=== PATIENT | female | born 1960 | race Caucasian/White ===

== ENCOUNTER 2019-04-01 00:05 | Day surgery (SDC) | payer OTHER, SELFPAY ==
[2019-03-23 13:13] VITALS: BP 168/96; PULSE 96; RESP 20; TEMP 37.3; O2SAT 97; BMI 32.1
[2019-04-01] VITALS (14 sets, daily range): BP systolic 115–143; BP diastolic 56–86; PULSE 76–128; RESP 12–19; TEMP 36.4–37.3; O2SAT 90–98
--- NOTE | ~2019-04-01 | XR_ITS ---
EXAMINATION: XR knee RT 2V DATE: 04/01/2019 16:09 INDICATION: Right knee arthroplasty. Postop. TECHNIQUE: 2 views of right knee were obtained. COMPARISON: Right knee radiographs 01/19/2019 FINDINGS: There is a medial compartment arthroplasty in near-anatomic alignment. No fracture. There i s mild osteoarthritis of lateral and patellofemoral compartments characterized by marginal osteophyte s. There is gas in the knee joint and soft tissues, consistent with recent surgery. IMPRESSION: 1. Medial compartment arthroplasty in near-anatomic alignment. Reviewed, dictated and finalized at location B. DE SALES ENGINEER
[2019-04-01] MEDS: LACTATED RINGERS 1,000 ML 30 ML IV CONT ×2 (10:50→16:00)
--- NOTE | 2019-04-01 12:20 | WPDHPUPDATE1 ---
History and Physical Update Update Date/Time: 04/01/19 12:20 History and Physical has been reviewed, including an updated exam of the patient. There are NO changes in the patient's condition. Risks, benefits, and alternatives have been discussed and questions answered. Patient agrees to proceed with procedure.
--- NOTE | 2019-04-01 12:25 | P.PNAN_ITS ---
Anes - Initial Pre Proc Eval Procedure: Operation Date: 04/01/19 12:00 Proposed Procedures p Right Partial Knee Arthroplasty(Right) - Ramirez Tiwari MD Date/Time: 04/01/19 12:25 Surgeon: Ramirez Tiwari MD Pre Op Diagnosis: Right Knee Osteoarthritis Patient Data Age: 58 Gender: F Height: 1.55 m Weight: 75.8 kg Last Vital Signs Temp 37.3 C 04/01/19 10:41 Pulse 89 04/01/19 10:41 Resp 16 04/01/19 10:41 BP 140/74 04/01/19 10:41 Pulse Ox 96 04/01/19 10:41 Allergies Allergy/AdvReac Type Severity Reaction Status Date / Time Macrolide Antibiotics AdvReac Intermediate THRUSH Verified 04/01/19 11:08 amoxicillin [From Augmentin] AdvReac Mild Nausea Verified 04/01/19 11:08 clavulanic acid AdvReac Mild Nausea Verified 04/01/19 11:08 [From Augmentin] erythromycin base AdvReac Mild Nausea Verified 04/01/19 11:08 Home Medications Medication Instructions Recorded Confirmed Type aspirin 81 mg PO DAILY 03/11/19 04/01/19 History estradiol 2 mg PO DAILY 03/11/19 04/01/19 History fenofibrate 160 mg PO DAILY 03/11/19 04/01/19 History ropinirole 3 mg PO DAILY 03/11/19 04/01/19 History simvastatin 20 mg PO DAILY 03/11/19 04/01/19 History butalbital 50 mg-acetaminophen 300 1 cap PO Q4H PRN 03/24/19 04/01/19 History mg-caffeine 40 mg-codeine 30 mg cap sumatriptan succinate 25 mg tablet See Rx Instructions PO .COMPLEX 03/24/19 04/01/19 History Patient hx anesthesia problems: post op nausea/vomiting Family hx anesthesia problems: none Prior Surgeries: BILATERAL EYE SURGERY TO CORRECT STIGMATISM, RT KNEE SCOPE 2018 [facility] Past Medical History Medical History (Updated 04/01/19 @ 12:26 by Elliott De La Garza MD) Anxiety (Acute) Arthritis (Acute) HTN (hypertension) (Acute) Hypercholesterolemia (Acute) Social History Social History Smoking status: Never smoker Second hand tobacco smoke exposure: Yes Alcohol intake: never Anes - Eval Final PreProcedure Day of Procedure 04/01/19 12:25 Patient weight: obese Heart: regular rate and rhythm Lungs: clear to auscultation and normal air movement Airway: Mallampati scale class II Neurological: alert and oriented Last oral intake: >/= 8 hours ASA classification: III Emergent: no Anesthetic plan: proceed Anesthesia type and monitoring: general LMA Informed Consent: The patient's anesthetic plan and its attendant risks and benefits were discussed with the patient/family/POA. Questions were solicited and answers provided to the satisfaction of the patient/family/POA.
--- NOTE | 2019-04-01 13:27 | WPDANESPNB ---
Anes - Peripheral Nerve Block Date/Time: 04/01/19 13:27 I have discussed with the patient/family/POA the placement of a peripheral nerve block for post-operative pain management, including associated risks, benefits, complications, and side effects. Alternative methods of post-operative analgesia were detailed. Questions were solicited and answers provided to the satisfaction of the patient/family/POA. Time-Out: A pre-procedural Time-Out was completed immediately before starting the procedure and confirmed: Patient Identification, Site, Procedure, Patient Position and the Availability of Requisite Equipment. Clinical Indications: Acute post-operative pain management requested by the operative surgeon. Nerve Block Insertion Note Anes-nerve block: adductor canal right Patient position: supine Skin prep: chlorhexidine Needle: 22 gauge, stimulating, insulated echogenic needle. Needle length: 80 mm Technique: ultrasound Technique comment: in plane Injectate: bupivacaine 0.5% with epi 5 mcg/ml (30cc) Observations: tolerated well Complications: none Procedure start time:: 1315 Procedure end time:: 1320
[2019-04-01] MEDS: GENTAMICIN BONE CEMENT REFOBACIN 1 EACH TOPICAL (15:02)
[2019-04-01] MEDS: METOPROLOL TARTRATE INJ 5 MG/5 ML VIAL IV PUSH ×3 (15:53→16:10)
--- NOTE | 2019-04-01 15:55 | PM.PROC ---
Date of procedure: 04/01/19 Pre-op diagnosis: Right Knee Osteoarthritis Post-op diagnosis: same Procedure performed: Partial knee arthroplasty, medial compartment. Implants: Triathlon PKR X3 system tibial insert size #1, 9 mm thickness, femoral component size 2. Tibial base tibial base plate size 1. Anesthesia: GETA and regional (subsartorial block.) Surgeon: Ramirez Tiwari MD Estimated blood loss (mL): 50 Drains: No Complications: None Findings: Excellent bone quality. The remainder of the knee appeared intact. The anterior cruciate ligament was intact. Extensive bone loss on both the femoral and tibial side. Small stature. -1 mm resection of the distal femur. Operative details: The patient was given a general anesthetic. Preoperative antibiotics were given. The knee was prepped and draped in the usual sterile fashion. A longitudinal incision was created along the medial aspect of the patellar tendon. A minimally invasive optimized mid vastus approach was completed. No medial release was taken. The external alignment guide was used to cut the tibia with anatomic posterior slope. A 4 millimeter resection was taken. The spacer block technique was utilized to measure flexion and extension gaps after the osteophytes were removed. The difference was used to calculate the distal resection. The distal cutting block was utilized to cut the distal femur. The AP and chamfer block was utilized for this last cuts. The femur and tibia were sized. Range of motion and gap balancing was assessed. This was tested with the 1.5 millimeter spacer. The bony surfaces were cleaned with lavaged. Lug holes were drilled. The real components were cemented into position. Excess cement was carefully removed. The tourniquet was released. Meticulous hemostasis was maintained. The wound was closed with interrupted 1 Vicryl suture followed by a running 0 Quill suture and 2-0 Quill suture. Steri-Strips are placed in the skin the patient was extubated and brought to recovery room in stable condition. There were no complications.
--- NOTE | 2019-04-01 17:27 | PC.NURSE ---
This patient, Ashley Hwang, was admitted to [facility] Surg Room 303-01. Patient/family oriented to hospital policies and general routines including ID bracelet, bed and alarms, visiting hours, pain management, procedures, bathroom and other care routines, personal items, smoking policy, room service/diet, and visiting hours. Valuables list has been completed. Information on how to activate the Rapid Response Team has been discussed. Patient/Family are encouraged to report perceived risks to care and to ask questions if they do not understand what they are told or what they should do.
[2019-04-01] MEDS: SODIUM CHLORIDE 0.9% IV 1,000 ML 125 ML IV CONT (17:56)
[2019-04-01] MEDS: KETOROLAC 15 MG/ML VIAL (*BKC) IV PUSH ×2 (17:59→23:19)
[2019-04-01] MEDS: DOCUSATE SODIUM 100 MG CAPSULE PO (17:59)
[2019-04-01] MEDS: SCOPOLAMINE 1.5 MG PATCH TRANSDERM (20:53)
[2019-04-01] MEDS: FAMOTIDINE 20 MG TABLET PO (20:56)
[2019-04-02] MEDS: SODIUM CHLORIDE 0.9% IV 1,000 ML 125 ML IV CONT (02:26)
[2019-04-02] MEDS: KETOROLAC 15 MG/ML VIAL (*BKC) IV PUSH ×2 (05:19→11:05)
[2019-04-02 06:02] VITALS: BP 109/56; PULSE 78; RESP 18; TEMP 36.8; O2SAT 97
--- NOTE | 2019-04-02 07:55 | WPDANESPN ---
Anes - Prog Note Post-Op Date/Time: 04/02/19 07:55 Cardiovascular status: normal Respiratory status: normal Airway patency: baseline Mental status: baseline Post-Op hydration status: normal Vital Signs: Last Vital Signs Temp 36.8 C 04/02/19 06:02 Pulse 78 04/02/19 06:02 Resp 18 04/02/19 06:02 BP 109/56 L 04/02/19 06:02 Pulse Ox 97 04/02/19 06:02 Pain Score (VAS): 0/10. Patient resting in bed at time of assessment, appears comfortable. I/O: Intake & Output 04/01/19 04/01/19 04/02/19 15:59 23:59 07:59 Intake Total 50 150 1400 Output Total 1000 Balance 50 150 400 Post-procedural complaints: none Patient Feedback: Patient satisfied with anesthetic care.
[2019-04-02] MEDS: ESTRADIOL 1 MG TABLET 2 MG PO (08:11)
[2019-04-02] MEDS: ASPIRIN 81 MG CHEWABLE TABLET PO (08:11)
[2019-04-02] MEDS: hydroCHLOROthiazide 12.5 MG CAPSULE PO (08:11)
[2019-04-02] MEDS: FAMOTIDINE 20 MG TABLET PO (08:11)
[2019-04-02] MEDS: DOCUSATE SODIUM 100 MG CAPSULE PO (08:12)
== END 2019-04-02 12:33 | disposition home or self-care (01) ==
LOC: ANHSURGERY 15:49 → ANH3MEDSUR 17:25
PROVIDERS: PCP Family Medicine; Visit Provider Orthopaedic Surgery
PROC: (CPT 27446; principal; 2019-04-01 12:00)
DX: M17.11 Unilateral primary osteoarthritis, right knee (principal); G89.18 Other acute postprocedural pain; Z23 Encounter for immunization; I10 Essential (primary) hypertension; E78.00 Pure hypercholesterolemia, unspecified; F41.9 Anxiety disorder, unspecified; Z79.82 Long term (current) use of aspirin; E66.9 Obesity, unspecified; Z68.31 Body mass index [BMI] 31.0-31.9, adult
CPT/HCPCS: 27446; 64447; 73560; 90471; 90686; 97110; 97116; 97161; 97165; A9270; C1713; C1776; G0008; J0171; J0690; J1100; J1170; J1885; J2250; J2270; J2405; J2704; J2795; J3010; J7030; J7120

== ENCOUNTER → 2020-05-09 13:20 | Outpatient (CLI) | payer OTHER, SELFPAY ==
--- NOTE | ~2020-05-09 | MM_ITS ---
EXAMINATION: MM screening thuy BI w hayden HISTORY: Screening TECHNIQUE: Craniocaudal and mediolateral oblique 3-D tomosynthesis images were obtained and synthetic 2-D images were generated. CAD analysis was submitted and interpreted. COMPARISON: Comparison to multiple prior studies sequentially, with oldest reviewed study dated 10/21. BREAST PARENCHYMAL COMPOSITION: The breasts are heterogeneously dense, which may obscure small masses . FINDINGS: There are bilateral breast asymmetries which are slightly more prominent on current examina tion, located in the upper outer quadrants. There are no suspicious calcifications. IMPRESSION: 1. Bilateral breast asymmetries in the upper outer quadrants. 2. Additional mammographic views and possible breast ultrasound are recommended. BI-RADS Category 0: Incomplete: Needs additional imaging evaluation. Reviewed, dictated and finalized at location A. ON ELECTRODES SUPERVISOR IMPRESSION: 1. Bilateral breast asymmetries in the upper outer quadrants. 2. Additional mammographic views and possible breast ultrasound are recommended . BI-RADS Category 0: Incomplete: Needs additional imaging evaluation.
== END ==
PROVIDERS: Visit Provider Nurse Practitioner Obstetrics & Gynecology
DX: Z12.31 Encounter for screening mammogram for malignant neoplasm of breast (principal); R92.8 Other abnormal and inconclusive findings on diagnostic imaging of breast
CPT/HCPCS: 77063; 77067

== ENCOUNTER → 2020-06-01 07:57 | Outpatient (CLI) | payer OTHER, SELFPAY ==
--- NOTE | ~2020-06-01 | MMUS_ITS ---
EXAMINATION: MM diagnostic mammo BI, US breast BI limited HISTORY: Bilateral breast asymmetries reported on 05/09/2020 bilateral digital screening mammogram ex amination TECHNIQUE: Additional 3-D tomosynthesis images of both breasts were performed and synthetic 2-D image s were generated. CAD analysis was submitted and interpreted. High resolution bilateral upper outer q uadrant breast ultrasound was performed. COMPARISON: 05/01/2020 bilateral digital screening mammogram FINDINGS: MAMMOGRAPHIC FINDINGS: There is heterogeneously dense stroma which may obscure small masses. There is a circumscribed 7.6 mm low-density opacity in the outer mid right breast, likely benign. No suspicious mass or architectural distortion is noted mammographically. Due to the dense heterogeneous stroma, bilateral upper outer quadrant breast ultrasound examination w as performed. ULTRASOUND: Right breast: At 10:00 8 cm from the nipple there is a 7.4 x 5.4 x 8.6 mm simple cyst with through transmission and posterior enhancement, likely corresponding to the circumscribed opacity noted in the outer mid righ t breast mammographically. Left breast: Probable 5.8 mm cluster of cysts at 1:00 4 cm from nipple adjacent shadowing is likely f rom dense stroma. 6 month follow-up targeted left breast ultrasound is recommended. 2:00 6 cm from nipple: Parallel circumscribed 2.9 x 5.6 x 4.3 mm hypoechoic area without internal vas cularity or posterior shadowing, likely benign 3:00 5 cm from nipple: Parallel circumscribed hypoechoic 2.6 x 4.1 x 3.3 mm lesion without internal v ascularity or posterior shadowing, likely benign 3:00 7 cm from nipple: Parallel circumscribed uniform hypoechoic 9.7 x 5.3 x 8.7 mm area, likely a li hollis. IMPRESSION: 1. Probably benign findings of left breast 2. 6 month targeted left breast ultrasound follow-up is recommended. BI-RADS category 3, probably benign findings. Reviewed, dictated and finalized at location A. H SHRINKING SUPERVISOR IMPRESSION: 1. Probably benign findings of left breast 2. 6 month targeted left breast ultrasound follow-up is recommended. BI-RADS category 3, probably benign findings.
== END ==
PROVIDERS: Visit Provider Nurse Practitioner Obstetrics & Gynecology
DX: R92.8 Other abnormal and inconclusive findings on diagnostic imaging of breast (principal)
CPT/HCPCS: 76642; 77066

== ENCOUNTER 2021-01-12 14:51 | Emergency (ER) | payer OTHER, SELFPAY ==
--- NOTE | 2021-01-12 14:55 | ED.EXTPRO ---
HPI - Extremity Problem General Chief complaint: Extremity Problem,Nontraumatic Stated complaint: HEADACHE/L WRIST SWELLING Time Seen by Provider: 01/12/21 15:08 Source: patient and RN notes reviewed Mode of arrival: ambulatory Limitations: no limitations History of Present Illness HPI Narrative: 60-year-old female presents concern for left wrist pain and swelling that has been occurring for 1 month. She denies injury or trauma. Denies redness, warmth. Reports she has been taking Tylenol for pain. Reports she is unable to take NSAIDs because they upset her stomach. 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 Reports pain that radiates from the wrist down to the first digit and up to the elbow. Reports pain is exacerbated with bending of the wrist or flexion of the fingers. Reports decreased moving consultant strength. In a separate complaint she reports she wants to get tested for Covid because she found out she was at a wedding or someone had Covid. She denies any significant symptoms. MD Complaint: extremity pain Related Data Home Medications Medication Instructions Recorded Confirmed aspirin 81 mg PO DAILY 03/11/19 01/12/21 estradiol 2 mg PO DAILY 03/11/19 01/12/21 butalbital 50 mg-acetaminophen 300 1 cap PO Q4H PRN 03/24/19 01/12/21 mg-caffeine 40 mg-codeine 30 mg cap sumatriptan succinate 25 mg tablet See Rx Instructions PO .COMPLEX 03/24/19 01/12/21 cholecalciferol (vitamin D3) 10 10 mcg PO DAILY 03/28/20 01/12/21 mcg (400 unit) tablet Allergies Allergy/AdvReac Type Severity Reaction Status Date / Time Macrolide Antibiotics AdvReac Intermediate THRUSH Verified 01/12/21 14:57 amoxicillin [From Augmentin] AdvReac Mild Nausea Verified 01/12/21 14:57 clavulanic acid AdvReac Mild Nausea Verified 01/12/21 14:57 [From Augmentin] erythromycin base AdvReac Mild Nausea Verified 01/12/21 14:57 Review of Systems Review of Systems: CONSTITUTIONAL: Denies malaise, chills, sweats, or fever. SKIN: Denies rash, itching, redness, warmth, open skin MUSCULOSKELETAL: Reports left wrist pain and swelling, decreased moving consultant strength NEUROLOGIC: Denies numbness, weakness All systems reviewed & are unremarkable except as noted in HPI and below PMFSH Past Medical History Medical History Anxiety Arthritis BMI 31.0-31.9,adult HTN (hypertension) Hypercholesterolemia Tobacco abuse Family History Family History Mother Family history of arthritis Diabetes mellitus Hypertension Father Family history of lung cancer Family history of cardiovascular disease Other Cerebrovascular accident Family history of elevated blood lipids Family history of lupus erythematosus Social History Social History Smoking status: Current every day smoker Second hand tobacco smoke exposure: Yes Alcohol intake: never Substance use: never Gender identity (if verbalized by the patient): Female Spiritual care concerns: No Agree to blood products: Yes Comments At time of signature, agree with nursing past medical, surgical, social and family history. There is no relevant family history pertinent to the presenting complaint Exam Narrative: GENERAL: Well-appearing, well-nourished, and in no acute distress. HEAD: Normocephalic, atraumatic. EYES: PERRLA, conjunctivae clear NECK: Supple. CHEST: Speaks in full sentences. No respiratory distress. HEART: Regular rate and rhythm. Normal and equal peripheral pulses. EXTREMITIES: Left wrist, hand, digits have normal strength and sensation, normal range of motion. Moderate lateral wrist edema, no erythema or ecchymosis. 5/5 strength with wrist and digit flexion and extension. Normal sensation with sensitivity to light touch and pain. No point tenderness. No open wounds, no skin tenting, no devitalized t
[2021-01-12 14:57] VITALS: BP 141/80; PULSE 86; RESP 16; TEMP 36.8; O2SAT 99
== END 2021-01-12 15:25 | disposition home or self-care (01) ==
PROVIDERS: Emergency Provider Nurse Practitioner; PCP Nurse Practitioner Family
DX: M25.432 Effusion, left wrist (principal); M77.8 Other enthesopathies, not elsewhere classified; Z20.822 Contact with and (suspected) exposure to COVID-19; Z79.82 Long term (current) use of aspirin; M19.90 Unspecified osteoarthritis, unspecified site; I10 Essential (primary) hypertension; E78.00 Pure hypercholesterolemia, unspecified; F17.200 Nicotine dependence, unspecified, uncomplicated
CPT/HCPCS: 99213; G0463

== ENCOUNTER 2021-06-20 14:29 | Emergency (ER) | payer OTHER, SELFPAY ==
--- NOTE | ~2021-06-20 | XR_ITS ---
EXAMINATION: XR knee RT min 4V DATE: 06/20/2021 14:49 INDICATION: Right knee pain post fall TECHNIQUE: Anteroposterior, 2 oblique, sunrise and crosstable lateral views of the right knee were ob tained COMPARISON: 03/28/2020 FINDINGS: Again seen is a medial unicompartmental right knee arthroplasties which remains well seated in near-a natomic alignment. No fracture. No periprosthetic lucency to suggest loosening. Osteoarthritis with m oderate size marginal osteophytes in the lateral and patellofemoral compartments. Small right knee mendez int effusion without layering lipohemarthrosis at the suprapatellar pouch. There is also a small loos e body at the suprapatellar pouch. Mild soft tissue swelling at the anteromedial aspect of the knee a nd anterior to the patellar tendon. IMPRESSION: 1. Medial unicompartmental right knee arthroplasty in near-anatomic alignment. No acute osseous abnor mality. Reviewed, dictated and finalized at location A. OMER DEVELOPMENT MANAGER IMPRESSION: 1. Medial unicompartmental right knee arthroplasty in near-anatomic alignment. No acute osseous abnormality.
[2021-06-20 14:34] VITALS: BP 150/68; PULSE 98; RESP 16; TEMP 36.7; O2SAT 98
--- NOTE | 2021-06-20 15:07 | ED.LOWEXIN ---
HPI - Extremity Injury (Lower) General Chief Complaint: Extremity Injury, Lower Stated Complaint: INJURED R KNEE Source: patient Mode of arrival: ambulatory Limitations: no limitations History of Present Illness HPI Narrative: 60-year-old female presents to [facility] with complaints of pain to her right knee after slipping and falling on ice 3 hours ago. Patient reports that she was at her place of employment, when she slipped on ice and fell, landing on her right knee. Patient reports that she did have a partial right knee replacement years ago. Patient called orthopedic physician but he is out of the office for the week and they suggested that she come here for an x-ray. Patient denies hitting her head or loss of consciousness. Patient reports that she takes Tylenol arthritis daily. MD complaint: knee injury Onset (ago): hour(s) (3) Injury: Right: knee Relieving factors: nothing Exacerbating factors: movement Context: fall Other symptoms: none Related Data Home Medications Medication Instructions Recorded Confirmed aspirin 81 mg PO DAILY 03/11/19 01/12/21 estradiol 2 mg PO DAILY 03/11/19 01/12/21 butalbital 50 mg-acetaminophen 300 1 cap PO Q4H PRN 03/24/19 01/12/21 mg-caffeine 40 mg-codeine 30 mg cap sumatriptan succinate 25 mg tablet See Rx Instructions PO .COMPLEX 03/24/19 01/12/21 cholecalciferol (vitamin D3) 10 10 mcg PO DAILY 03/28/20 01/12/21 mcg (400 unit) tablet Allergies Allergy/AdvReac Type Severity Reaction Status Date / Time Macrolide Antibiotics AdvReac Intermediate THRUSH Verified 01/12/21 14:57 amoxicillin [From Augmentin] AdvReac Mild Nausea Verified 01/12/21 14:57 clavulanic acid AdvReac Mild Nausea Verified 01/12/21 14:57 [From Augmentin] erythromycin base AdvReac Mild Nausea Verified 01/12/21 14:57 Review of Systems Constitutional: Constitutional: Denies chills, Denies fever(s) and Denies weakness Cardiovascular: Cardiovascular: Denies chest pain, Denies rapid heart rate, Denies radiating jaw, neck or arm pain and Denies slow heart rate Gastrointestinal: Gastrointestinal: Denies abdominal pain, Denies diarrhea, Denies nausea and Denies vomiting Musculoskeletal: Musculoskeletal: Reports arthralgias and Reports joint swelling Comments: Right knee pain and swelling Integumentary/Breasts: Skin/Breast: Denies rash PMFSH Past Medical History Medical History Anxiety Arthritis BMI 31.0-31.9,adult HTN (hypertension) Hypercholesterolemia Tobacco abuse Family History Family History Mother Family history of arthritis Diabetes mellitus Hypertension Father Family history of lung cancer Family history of cardiovascular disease Other Cerebrovascular accident Family history of elevated blood lipids Family history of lupus erythematosus Social History Social History Smoking status: Current every day smoker Second hand tobacco smoke exposure: Yes Alcohol intake: never Substance use: never Gender identity (if verbalized by the patient): Female Spiritual care concerns: No Agree to blood products: Yes Comments At time of signature, I agree with nursing past medical, surgical, social and family history. There is no relevant family history pertinent to the presenting complaint. Exam Const: General: no acute distress Nutritional Appearance: well nourished Orientation/consciousness: patient oriented x3 Neck: Neck: normal visual inspection Resp: Effort & Inspection: normal respiratory effort Auscultation: clear to auscultation bilaterally Cardio: Rate: regular rate, not bradycardic and not tachycardic Rhythm: regular rhythm Skin: General skin exam: normal color Rashes: no rashes Wounds: no wounds Neuro: General: patient oriented x3, moves all extremities and no meningeal signs Extrem: Oth
== END 2021-06-20 15:23 | disposition home or self-care (01) ==
PROVIDERS: Emergency Provider Nurse Practitioner Family; PCP Family Medicine
DX: M25.561 Pain in right knee (principal); F17.200 Nicotine dependence, unspecified, uncomplicated; M19.90 Unspecified osteoarthritis, unspecified site; I10 Essential (primary) hypertension; E78.00 Pure hypercholesterolemia, unspecified; Z79.82 Long term (current) use of aspirin
CPT/HCPCS: 73564; 99213; G0463

== ENCOUNTER 2021-08-28 02:30 | Emergency (ER) | payer OTHER, SELFPAY ==
[2021-08-28 02:34] VITALS: BP 145/77; PULSE 82; RESP 18; TEMP 35.8; O2SAT 100
[2021-08-28 02:40] VITALS: BP 115/90; PULSE 73; RESP 16; TEMP 36.4; O2SAT 93
--- NOTE | 2021-08-28 03:31 | ED.GENADULT ---
HPI - General Adult General Chief complaint: Headache Stated complaint: cluster headache Time Seen by Provider: 08/28/21 02:52 Source: patient History of Present Illness HPI narrative: 61-year-old female presented to the emergency department for evaluation of what she suspects is a cluster headache. Patient has been having intermittent symptoms of the last few days. This happens on a yearly basis for her. Patient describes a sharp occipital pains that are intermittent but occur rapidly over a period of time, typically a few hours and then they resolve. Patient had some episodes on , was okay Saturday, but did have recurrent episodes on Saturday and then again . Patient had previously been treated with dexamethasone and Fioricet and had good results. Patient describes an adverse reaction to Compazine previously. Patient has had neurology follow-up for these many years ago and had a negative head CT. Patient does have seasonal allergies associated with the spring and states that the headaches occur typically this time of the year. Related Data Home Medications Medication Instructions Recorded Confirmed aspirin 81 mg PO DAILY 03/11/19 06/26/21 cholecalciferol (vitamin D3) 10 10 mcg PO DAILY 03/28/20 06/26/21 mcg (400 unit) tablet adalimumab [Humira(CF) Pen] mg SUBCUT 08/28/21 08/28/21 estradiol mg 08/28/21 fenofibrate mg 08/28/21 folic acid 08/28/21 hydrochlorothiazide 08/28/21 methotrexate sodium (PF) 08/28/21 paroxetine HCl mg PO 08/28/21 ropinirole mg 08/28/21 simvastatin mg 08/28/21 Allergies Allergy/AdvReac Type Severity Reaction Status Date / Time Macrolide Antibiotics AdvReac Intermediate THRUSH Verified 08/28/21 02:56 amoxicillin [From Augmentin] AdvReac Mild Nausea Verified 08/28/21 02:56 clavulanic acid AdvReac Mild Nausea Verified 08/28/21 02:56 [From Augmentin] erythromycin base AdvReac Mild Nausea Verified 08/28/21 02:56 Review of Systems Review of Systems: CONSTITUTIONAL: Denies fever, chills, or sweats. EYES: Denies visual changes, redness, or discharge. ENT: Denies rhinorrhea, congestion, sore throat, or otalgia. CARDIOVASCULAR: Denies chest pain, palpitations, or edema. RESPIRATORY: Denies cough or dyspnea. GASTROINTESTINAL: Denies abdominal pain, nausea, vomiting, or diarrhea. GENITOURINARY: Denies dysuria or hematuria. SKIN: Denies rash or itching. MUSCULOSKELETAL: Denies back pain, joint pain, or myalgia. NEUROLOGIC: see HPI All systems reviewed & are unremarkable except as noted in HPI and below PMFSH Past Medical History Medical History Anxiety Arthritis BMI 31.0-31.9,adult HTN (hypertension) Hypercholesterolemia Tobacco abuse Family History Family History Mother Family history of arthritis Diabetes mellitus Hypertension Father Family history of lung cancer Family history of cardiovascular disease Other Cerebrovascular accident Family history of elevated blood lipids Family history of lupus erythematosus Social History Social History Second hand tobacco smoke exposure: Yes Alcohol intake: never Substance use: never Gender identity (if verbalized by the patient): Female Spiritual care concerns: No Agree to blood products: Yes Exam Narrative: APPEARANCE: Well appearing, no pain, no distress, well-nourished. HEAD: normocephalic, atraumatic. EYES: PERRLA/EOMI, conjunctivae clear. NOSE: Normal no drainage NECK: Supple. No adenopathy, no masses. RESPIRATORY: Airway patent, respirations nonlabored. Clear to auscultation bilaterally, no rales, rhonchi, wheezing. CARDIOVASCULAR: Regular rate and rhythm without murmurs rubs or gallops. ABDOMINAL: Soft, nontender, nondistended, normal bowel sounds MUSCULOSKELETAL: Moves all extremities. Strength/ROM intact, No edema, No marika
[2021-08-28] MEDS: SODIUM CHLORIDE 0.9% IV 1,000 ML 999 ML IV CONT (04:00)
[2021-08-28] MEDS: KETOROLAC 15 MG/ML VIAL (*BKC) IV PUSH (04:03)
[2021-08-28 04:06] VITALS: BP 147/80; O2SAT 98
[2021-08-28] MEDS: ACETAMINOPHEN/BUTALBITAL/CAFFEINE 325-50-40 MG TABLET (FIORICET) 1 TAB PO (04:09)
[2021-08-28 04:31] VITALS: BP 133/82; O2SAT 98
[2021-08-28 05:00] VITALS: BP 137/76; PULSE 65; RESP 16; O2SAT 98
== END 2021-08-28 05:00 | disposition home or self-care (01) ==
PROVIDERS: Emergency Provider Emergency Medicine; PCP Family Medicine
DX: R51.9 Headache, unspecified (principal); M54.81 Occipital neuralgia; I10 Essential (primary) hypertension; E78.00 Pure hypercholesterolemia, unspecified; Z77.22 Contact with and (suspected) exposure to environmental tobacco smoke (acute) (chronic); Z79.82 Long term (current) use of aspirin
CPT/HCPCS: 96361; 96374; 96375; 99284; A9270; J1100; J1885; J7030

== ENCOUNTER 2022-04-16 01:04 | Day surgery (SDC) | payer OTHER, SELFPAY ==
[2022-02-27 09:26] VITALS: BMI 30.2
--- NOTE | 2022-03-04 09:38 | SUR.PREOP ---
938 CALLED PATIENT TO INFORM HER OF THE DOCTOR'S UNAVAILABILITY AND PROCEDURE CANCELLED. INFORMED PATIENT THE DOCTOR'S OFFICE WILL CALL TO RESCHEDULE PATIENT VOICED UNDERSTANDING.
[2022-04-16 09:07] VITALS: BP 137/75; PULSE 74; RESP 18; TEMP 36.6; O2SAT 98
--- NOTE | 2022-04-16 09:07 | WPDANESEPPF ---
Anes - Initial Pre Proc Eval Procedure: Operation Date: 04/16/22 10:00 Proposed Procedures p Esophagogastroduodenoscopy & Screening Colonoscopy - Antoni Randle MD Date/Time: 04/16/22 09:07 Surgeon: Antoni Randle MD Pre Op Diagnosis: neoplasm screening, dysphagia Patient Data Age: 61 Gender: F Height: 1.55 m Weight: 72.5 kg Allergies Allergy/AdvReac Type Severity Reaction Status Date / Time Macrolide Antibiotics AdvReac Intermediate THRUSH Verified 04/16/22 09:04 amoxicillin [From Augmentin] AdvReac Mild Nausea Verified 04/16/22 09:04 clavulanic acid AdvReac Mild Nausea Verified 04/16/22 09:04 [From Augmentin] erythromycin base AdvReac Mild Nausea Verified 04/16/22 09:04 Home Medications Medication Instructions Recorded Confirmed Type aspirin 81 mg chewable tablet 81 mg PO DAILY 03/11/19 04/02/22 History adalimumab 40 mg/0.4 mL 40 mg subcut WEEKLY 08/28/21 04/02/22 History subcutaneous pen kit (Humira(CF) Pen) estradiol 2 mg tablet 2 mg PO DAILY 08/28/21 04/02/22 History folic acid 1 mg tablet 1 mg PO DAILY 08/28/21 04/02/22 History methotrexate sodium (PF) 25 mg/mL 12.5 mg subcut WEEKLY 11/21/21 04/02/22 History injection solution fenofibrate 160 mg tablet 160 mg PO DAILY #30 tabs 02/22/22 04/02/22 Rx simvastatin 20 mg tablet 20 mg PO DAILY #30 tabs 02/22/22 04/02/22 Rx acetaminophen 650 mg 650 mg PO Q8H 02/27/22 04/02/22 History tablet,extended release (Tylenol Arthritis Pain) [id number] 1 cap PO Q8H PRN Headache 02/27/22 04/02/22 History 50 mg-300 mg-40 mg capsule cholecalciferol (vitamin D3) 50 50 mcg PO DAILY 02/27/22 04/02/22 History mcg (2,000 unit) capsule (Vitamin D3) hydrochlorothiazide 12.5 mg tablet 12.5 mg PO DAILY 02/27/22 04/02/22 History ropinirole 3 mg tablet 3 mg PO QHS #30 tabs 03/18/22 04/16/22 Rx paroxetine HCl 10 mg tablet 10 mg PO DAILY #90 tabs 04/11/22 04/16/22 Rx Patient hx anesthesia problems: none Family hx anesthesia problems: none Results Review: All pre-operative results and documents have been reviewed as part of the pre-operative evaluation. [facility] Past Medical History Medical History Anxiety Arthritis BMI 31.0-31.9,adult HTN (hypertension) Hypercholesterolemia Tobacco abuse Surgical History Surgical History (Updated 04/16/22 @ 09:07 by Mukesh Lui MD) History of total knee arthroplasty Family History Family History Mother Family history of arthritis Diabetes mellitus Hypertension Father Family history of lung cancer Family history of cardiovascular disease Other Cerebrovascular accident Family history of elevated blood lipids Family history of lupus erythematosus Social History Social History Smoking packs per day: 1 Smoking cigarettes per day: 20.0 Years smoked: 43 Smoking pack-years: 43.00 Smoking status: Current every day smoker Tobacco type: cigarettes Second hand tobacco smoke exposure: Yes Alcohol intake: former Substance use: current Substance use type: marijuana Other substance usage details: OCC. Living arrangements: with family Gender identity (if verbalized by the patient): Female Spiritual care concerns: No Agree to blood products: Yes Anes - Eval Final PreProcedure Day of Procedure 04/16/22 09:07 Patient weight: obese Heart: regular rate and rhythm Lungs: clear to auscultation Airway: Mallampati scale class II Neurological: alert and oriented Last oral intake: >/= 8 hours ASA classification: III Emergent: no Anesthetic plan: proceed Anesthesia type and monitoring: general GIVS and standard monitoring Results Review: All pre-operative results and documents have been reviewed as part of the pre-operative evaluation. Informed Consent
[2022-04-16] MEDS: LACTATED RINGERS 1,000 ML 150 ML IV CONT (09:16)
--- NOTE | 2022-04-16 09:38 | PM.HPGS ---
History of Present Illness History of Present Illness Consent: Risks, benefits, and alternatives have been discussed and questions answered. Patient agrees to proceed with procedure. Chief complaint: neoplasm screening, dysphagia Narrative: Ashley Hwang is a 61 year old female with intermittent dysphagia to solids but not taking anything, also needs screening colonoscopy (had one in her 40's because IBS) Review of Systems Constitutional: Constitutional: Denies headache(s) and Denies weakness Eyes: Eyes: Denies blurry vision ENT: Reports Normal hearing present, Denies headache(s) and Denies neck pain Cardiovascular: Cardiovascular: Denies chest pain and Denies dyspnea Respiratory: Respiratory: Denies dyspnea Gastrointestinal: Gastrointestinal: Reports no additional gastrointestinal complaints Genitourinary: Genitourinary: Denies dysuria Musculoskeletal: Musculoskeletal: Denies neck pain Integumentary/Breasts: Skin/Breast: Denies dry skin Neurologic: Reports Normal hearing present, Denies headache(s) and Denies weakness Psychiatric: Psychiatric: Denies anxiety Endocrine: Endocrine: Denies change in body appearance Hematologic/Lymphatic: Hematologic/Lymphatic: Denies easy bleeding Allergic/Immunologic: Allergic/Immunologic: Denies urticaria PMFSH Past Medical History Medical History Anxiety Arthritis BMI 31.0-31.9,adult HTN (hypertension) Hypercholesterolemia Tobacco abuse Surgical History Surgical History (Updated 04/16/22 @ 09:07 by Mukesh Lui MD) History of total knee arthroplasty Family History Family History Mother Family history of arthritis Diabetes mellitus Hypertension Father Family history of lung cancer Family history of cardiovascular disease Other Cerebrovascular accident Family history of elevated blood lipids Family history of lupus erythematosus Social History Social History Smoking packs per day: 1 Smoking cigarettes per day: 20.0 Years smoked: 43 Smoking pack-years: 43.00 Smoking status: Current every day smoker Tobacco type: cigarettes Second hand tobacco smoke exposure: Yes Alcohol intake: former Substance use: current Substance use type: marijuana Other substance usage details: OCC. Living arrangements: with family Gender identity (if verbalized by the patient): Female Spiritual care concerns: No Agree to blood products: Yes Meds Home Medications and Allergies Home Medications Medication Instructions Recorded Confirmed Type aspirin 81 mg chewable tablet 81 mg PO DAILY 03/11/19 04/02/22 History adalimumab 40 mg/0.4 mL 40 mg subcut WEEKLY 08/28/21 04/02/22 History subcutaneous pen kit (Humira(CF) Pen) estradiol 2 mg tablet 2 mg PO DAILY 08/28/21 04/02/22 History folic acid 1 mg tablet 1 mg PO DAILY 08/28/21 04/02/22 History methotrexate sodium (PF) 25 mg/mL 12.5 mg subcut WEEKLY 11/21/21 04/02/22 History injection solution fenofibrate 160 mg tablet 160 mg PO DAILY #30 tabs 02/22/22 04/02/22 Rx simvastatin 20 mg tablet 20 mg PO DAILY #30 tabs 02/22/22 04/02/22 Rx acetaminophen 650 mg 650 mg PO Q8H 02/27/22 04/02/22 History tablet,extended release (Tylenol Arthritis Pain) [id number] 1 cap PO Q8H PRN Headache 02/27/22 04/02/22 History 50 mg-300 mg-40 mg capsule cholecalciferol (vitamin D3) 50 50 mcg PO DAILY 02/27/22 04/02/22 History mcg (2,000 unit) capsule (Vitamin D3) hydrochlorothiazide 12.5 mg tablet 12.5 mg PO DAILY 02/27/22 04/02/22 History ropinirole 3 mg tablet 3 mg PO QHS #30 tabs 03/18/22 04/16/22 Rx paroxetine HCl 10 mg tablet 10 mg PO DAILY #90 tabs 04/11/22 04/16/22 Rx Allergies Allergy/AdvReac Type Severity Reaction Status Date / Time Macrolide Antibiotics AdvReac Intermediate THRU
--- NOTE | 2022-04-16 10:09 | SUR.OPER ---
EGD START: 947; END: 954. COLONOSCOPY START: 958; END: 1006.
[2022-04-16 10:14] VITALS: BP 104/71; PULSE 77; RESP 23; O2SAT 99
[2022-04-16 10:24] VITALS: BP 138/70; PULSE 65; RESP 14; O2SAT 100
[2022-04-16 10:34] VITALS: BP 135/65; PULSE 67; RESP 15; O2SAT 100
== END 2022-04-16 10:42 | disposition home or self-care (01) ==
PROVIDERS: PCP Nurse Practitioner Family; Visit Provider Internal Medicine Gastroenterology
PROC: 0DJ08ZZ Inspection of Upper Intestinal Tract, Via Natural or Artificial Opening Endoscopic (ICD-10-PCS; CPT 43235; principal; 2022-04-16 10:00)
DX: Z12.11 Encounter for screening for malignant neoplasm of colon (principal); K57.30 Diverticulosis of large intestine without perforation or abscess without bleeding; K64.8 Other hemorrhoids; K22.2 Esophageal obstruction; K29.70 Gastritis, unspecified, without bleeding; I10 Essential (primary) hypertension; F41.9 Anxiety disorder, unspecified; E78.00 Pure hypercholesterolemia, unspecified; M19.90 Unspecified osteoarthritis, unspecified site; F17.210 Nicotine dependence, cigarettes, uncomplicated; F12.90 Cannabis use, unspecified, uncomplicated; E66.9 Obesity, unspecified; Z68.29 Body mass index [BMI] 29.0-29.9, adult; Z79.82 Long term (current) use of aspirin; Z79.620 Long term (current) use of immunosuppressive biologic
CPT/HCPCS: 45378; 43239; 43249; 87081; 88305; C1726; J2704; J7120

== ENCOUNTER 2022-07-10 11:54 | Emergency (ER) | payer OTHER, SELFPAY ==
[2022-07-10 12:03] VITALS: BP 149/79; PULSE 90; RESP 16; TEMP 36.7; O2SAT 99
[2022-07-10] MEDS: KETOROLAC 15 MG/ML VIAL (*BKC) IV PUSH (14:48)
--- NOTE | 2022-07-10 14:48 | ED.HA ---
HPI - Headache General Chief Complaint: Headache Stated Complaint: headache x 1 week with sinus pressure Time Seen by Provider: 07/10/22 13:55 History of Present Illness HPI Narrative: Patient is a 61-year-old female with a history of hypertension, hyperlipidemia, anxiety presenting with a headache. Patient states that every year around this time she develops a persistent headache. States that she has had to come to the ER for these in the past. States that this time it started out as sharp stabbing and has now evolved into a generalized pressure headache. States that she feels sensitive to light. No numbness or weakness, vision changes, speech changes, ataxia, neck stiffness, fevers. States that Imitrex and steroids have helped in the past. States that oxygen has also helped in the past. No chest pain, shortness of breath, cough, abdominal pain, nausea or vomiting, diarrhea, dysuria, leg swelling. Patient does complain of increased urinary frequency. Related Data Home Medications Medication Instructions Recorded Confirmed aspirin 81 mg chewable tablet 81 mg PO DAILY 03/11/19 04/02/22 adalimumab 40 mg/0.4 mL 40 mg subcut WEEKLY 08/28/21 04/02/22 subcutaneous pen kit (Humira(CF) Pen) estradiol 2 mg tablet 2 mg PO DAILY 08/28/21 04/02/22 folic acid 1 mg tablet 1 mg PO DAILY 08/28/21 04/02/22 methotrexate sodium (PF) 25 mg/mL 12.5 mg subcut WEEKLY 11/21/21 04/02/22 injection solution acetaminophen 650 mg 650 mg PO Q8H 02/27/22 04/02/22 tablet,extended release (Tylenol Arthritis Pain) cholecalciferol (vitamin D3) 50 50 mcg PO DAILY 02/27/22 04/02/22 mcg (2,000 unit) capsule (Vitamin D3) Allergies Allergy/AdvReac Type Severity Reaction Status Date / Time Macrolide Antibiotics AdvReac Intermediate THRUSH Verified 07/12/22 11:57 clavulanic acid AdvReac Mild Nausea Verified 07/12/22 11:57 [From Augmentin] erythromycin base AdvReac Mild Nausea Verified 07/12/22 11:57 Review of Systems Review of Systems: All systems reviewed & are unremarkable except as noted in HPI and below PMFSH Past Medical History Medical History Anxiety Arthritis BMI 31.0-31.9,adult HTN (hypertension) Hypercholesterolemia Tobacco abuse Surgical History Surgical History History of total knee arthroplasty Family History Family History Mother Family history of arthritis Diabetes mellitus Hypertension Father Family history of lung cancer Family history of cardiovascular disease Other Cerebrovascular accident Family history of elevated blood lipids Family history of lupus erythematosus Social History Social History Smoking packs per day: 1 Smoking cigarettes per day: 20.0 Years smoked: 43 Smoking pack-years: 43.00 Smoking status: Current every day smoker Tobacco type: cigarettes Second hand tobacco smoke exposure: Yes Alcohol intake: former Substance use: current Substance use type: marijuana Other substance usage details: OCC. Living arrangements: with family Gender identity (if verbalized by the patient): Female Spiritual care concerns: No Agree to blood products: Yes Exam Narrative: GENERAL: Well-appearing, well-nourished, and in no acute distress. HEAD: Normocephalic, atraumatic. EYES: PERRLA and EOMI. ENT: Nares clear, no rhinorrhea or epistaxis. Mucous membranes moist. NECK: Supple. CHEST: Clear to auscultation. No respiratory distress. HEART: Regular rate and rhythm. No murmur heard. Normal peripheral pulses. ABDOMEN: Soft, nontender, nondistended EXTREMITIES: Normal range of motion. No edema. SKIN: Warm, dry, no rash. NEURO: No focal deficits. Alert and oriented x3. PSYCH: Normal mood and affect. Course Vital Si
[2022-07-10] MEDS: SODIUM CHLORIDE 0.9% IV 1,000 ML 999 ML IV CONT (14:53)
[2022-07-10] MEDS: SUMAtriptan SUCCINATE 25 MG TABLET PO (14:53)
[2022-07-10 15:20] LABS: Basophils Absolute Auto 0.1 K/mm3 (0.0-0.1); Basophils Percent Auto 0.5 % (0.2-1.2); Eosinophils Absolute Auto 0.1 K/mm3 (0-0.3); Hematocrit 42.2 % (37.0-47.0); Hemoglobin 13.6 g/dL (12.0-15.0); Immature Granulocyte Absolute 0.04 K/mm3 (0.00-0.031); Immature Granulocyte Percent A 0.4 % (0-0.5); Lymphocytes Absolute Auto 3.01 K/mm3 (0.9-3.2); Lymphocytes Percent Auto 30.8 % (18.3-44.2); Mean Corpuscular HGB Conc 32.2 g/dl (32-36); Mean Corpuscular Hemoglobin 31.2 pg (26-34); Mean Corpuscular Volume 96.8 fl (80-100); Monocytes Absolute Auto 0.7 K/mm3 (0.1-0.6); Monocytes Percent Auto 7.2 % (2.6-8.5); Neutrophils Absolute Auto 5.9 K/mm3 (1.3-6.7); Neutrophils Percent Auto 60.1 % (45.5-73.1); Platelet Count Result 359 k/mm3 (150-375); Red Blood Count 4.36 M/mm3 (4.2-5.4); Red Cell Distribution Width 13.2 % (11.5-14.5); White Blood Count 9.8 K/mm3 (4.5-10.0)
[2022-07-10 15:24] LABS: Appearance Urine Clear (Clear); Bilirubin Urine Negative (Negative); Blood Urine Trace-intact (Negative); Color Urine Yellow (Yellow); Glucose Urine UA Negative (Negative); Ketones Urine Negative (Negative); Leukocyte Esterase Ur Negative LEU/UL (Negative); Nitrate Urine Negative (Negative); Protein Urine Negative (Negative); Specific Grav Ur 1.015 (1.001-1.035); Urobilinogen Urine 0.2 mg/dL (<2.0)
[2022-07-10 15:29] LABS: Bacteria Urine Trace /hpf; Squamous Epithelial Cell Urine Rare /hpf (Few)
[2022-07-10 15:37] LABS: Alanine Aminotransferase 42 U/L (6-35); Albumin Level 4.4 g/dL (3.5-5.1); Alkaline Phosphatase 72 U/L (38-126); Anion Gap 7 mmol/L (8-16); Aspartate Amino Transferase 31 U/L (14-36); Bilirubin,Total 0.4 mg/dL (0.2-1.3); Blood Urea Nitrogen 13 mg/dL (7-17); Calcium 9.4 mg/dL (8.4-10.2); Carbon Dioxide 29 mmol/L (22-30); Chloride 103 mmol/L (98-107); Estimated CRCL calculation 110 ml/min; Estimated Glomerular Filt Rate > 60; Glucose 96 mg/dL (65-110); Potassium 3.8 mmol/L (3.4-5.0); Sodium 139 mmol/L (137-145)
[2022-07-10 15:40] LABS: Add Urine Microscopic? YES
[2022-07-10 16:38] VITALS: BP 131/82; PULSE 74; RESP 16; O2SAT 99
== END 2022-07-10 16:38 | disposition home or self-care (01) ==
PROVIDERS: Emergency Provider Emergency Medicine; PCP Family Medicine
DX: N39.0 Urinary tract infection, site not specified (principal); R51.9 Headache, unspecified; F17.210 Nicotine dependence, cigarettes, uncomplicated; F41.9 Anxiety disorder, unspecified; M19.90 Unspecified osteoarthritis, unspecified site; I10 Essential (primary) hypertension; E78.5 Hyperlipidemia, unspecified
CPT/HCPCS: 36415; 80053; 81001; 85025; 96361; 96374; 96375; 99284; A9270; J1100; J1885; J7030

== ENCOUNTER 2022-07-12 10:46 | Emergency (ER) | payer OTHER, SELFPAY ==
--- NOTE | ~2022-07-12 | CT_ITS ---
EXAMINATION: CT brain wo con DATE: 07/12/2022 11:31 INDICATION: Headache. TECHNIQUE: Computed tomography (CT) of the head was performed without intravenous contrast. The mA wa s adjusted according to patient size. Iterative reconstruction technique was employed. The dose-lengt h product was 605.33 mGy-cm. COMPARISON: Head CT 08/10/2018 FINDINGS: There is no intracranial hemorrhage, acute infarction, or abnormal intracranial mass lesion . The ventricles are normal in size. There is mild mucosal thickening in the paranasal sinuses. The m astoid air cells are normal. The orbits are normal. IMPRESSION: 1. Normal brain. Reviewed, dictated and finalized at location A. T OF [employer] MANAGER IMPRESSION: 1. Normal brain.
[2022-07-12 11:00] VITALS: BP 148/70; PULSE 87; RESP 16; TEMP 37; O2SAT 96
--- NOTE | 2022-07-12 12:37 | ED.GENADULT ---
HPI - General Adult General Chief complaint: Headache Stated complaint: headaches Time Seen by Provider: 07/12/22 11:14 Source: patient and old records reviewed Mode of arrival: ambulatory Limitations: no limitations History of Present Illness HPI narrative: Patient is a 61-year-old female who presents to the ED with reports of a diffuse headache. Patient reports having pain for the last 1.5 weeks. She states pain starts from her occipital region/neck and spreads diffusely throughout her head to her methodist regions. Patient reports having occasional headaches around this time of the year. She has been seen in the ED several times for this previously, thought to be related to cluster headaches versus occipital neuralgia versus migraine. Patient was seen here on Saturday and had improvement with Imitrex, steroids, fluids, Toradol. Patient states her pain improved for approximately 2 hours before returning again that night. She is unable to find any other relief. She took Fioricet around 5 AM this morning and ibuprofen 800 mg at 10 AM. Patient also reports having photophobia and phonophobia, denies fever, vision changes, nausea, vomiting, weakness, dizziness, lightheadedness, numbness, confusion, head injury. Related Data Home Medications Medication Instructions Recorded Confirmed aspirin 81 mg chewable tablet 81 mg PO DAILY 03/11/19 04/02/22 adalimumab 40 mg/0.4 mL 40 mg subcut WEEKLY 08/28/21 04/02/22 subcutaneous pen kit (Humira(CF) Pen) estradiol 2 mg tablet 2 mg PO DAILY 08/28/21 04/02/22 folic acid 1 mg tablet 1 mg PO DAILY 08/28/21 04/02/22 methotrexate sodium (PF) 25 mg/mL 12.5 mg subcut WEEKLY 11/21/21 04/02/22 injection solution acetaminophen 650 mg 650 mg PO Q8H 02/27/22 04/02/22 tablet,extended release (Tylenol Arthritis Pain) cholecalciferol (vitamin D3) 50 50 mcg PO DAILY 02/27/22 04/02/22 mcg (2,000 unit) capsule (Vitamin D3) Allergies Allergy/AdvReac Type Severity Reaction Status Date / Time Macrolide Antibiotics AdvReac Intermediate THRUSH Verified 07/12/22 11:57 clavulanic acid AdvReac Mild Nausea Verified 07/12/22 11:57 [From Augmentin] erythromycin base AdvReac Mild Nausea Verified 07/12/22 11:57 Review of Systems Review of Systems: CONSTITUTIONAL: Denies fever, chills, or sweats. EYES: See HPI. ENT: See HPI. CARDIOVASCULAR: Denies chest pain, palpitations, or edema. RESPIRATORY: Denies cough or dyspnea. GASTROINTESTINAL: Denies abdominal pain, nausea, vomiting. MUSCULOSKELETAL: See HPI. NEUROLOGIC: See HPI. All systems reviewed & are unremarkable except as noted in HPI and below PMFSH Past Medical History Medical History Anxiety Arthritis BMI 31.0-31.9,adult HTN (hypertension) Hypercholesterolemia Tobacco abuse Surgical History Surgical History History of total knee arthroplasty Family History Family History Mother Family history of arthritis Diabetes mellitus Hypertension Father Family history of lung cancer Family history of cardiovascular disease Other Cerebrovascular accident Family history of elevated blood lipids Family history of lupus erythematosus Social History Social History Smoking packs per day: 1 Smoking cigarettes per day: 20.0 Years smoked: 43 Smoking pack-years: 43.00 Smoking status: Current every day smoker Tobacco type: cigarettes Second hand tobacco smoke exposure: Yes Alcohol intake: former Substance use: current Substance use type: marijuana Other substance usage details: OCC. Living arrangements: with family Gender identity (if verbalized by the patient): Female Spiritual care concerns: No Agree to blood products: Yes Exam Narrative: GENERAL: Well a
[2022-07-12] MEDS: SODIUM CHLORIDE 0.9% IV 1,000 ML 999 ML IV CONT (13:04)
[2022-07-12] MEDS: SUMAtriptan SUCCINATE 25 MG TABLET 50 MG PO (13:05)
[2022-07-12] MEDS: METOCLOPRAMIDE HCL INJ 10 MG/2 ML VIAL IV PUSH (13:05)
[2022-07-12] MEDS: diphenhydrAMINE HCl INJ 50 MG/ML VIAL 25 MG IV PUSH (13:05)
== END 2022-07-12 14:34 | disposition home or self-care (01) ==
PROVIDERS: Emergency Provider Physician Assistant; PCP Family Medicine
DX: R51.9 Headache, unspecified (principal); I10 Essential (primary) hypertension; E78.00 Pure hypercholesterolemia, unspecified; F41.9 Anxiety disorder, unspecified; F17.210 Nicotine dependence, cigarettes, uncomplicated; F12.90 Cannabis use, unspecified, uncomplicated; Z79.82 Long term (current) use of aspirin; Z79.620 Long term (current) use of immunosuppressive biologic
CPT/HCPCS: 70450; 96365; 96375; 99284; A9270; J0131; J1100; J1200; J2765; J7030

== ENCOUNTER → 2023-01-21 13:32 | Outpatient (CLI) | payer OTHER, SELFPAY ==
--- NOTE | ~2023-01-21 | XR_ITS ---
EXAMINATION: XR chest 2V 01/21/2023 13:56 INDICATION: Smoker. PROCEDURE: 2 view chest COMPARISON: 02/24/2019 FINDINGS: The lungs are clear. The cardiomediastinal silhouette is within normal limits. There are no pleural effusions. There is no pneumothorax suspected. IMPRESSION: 1: NO ACUTE CARDIOPULMONARY DISEASE. Reviewed, dictated and finalized at location B.
== END ==
PROVIDERS: PCP Nurse Practitioner Family; Visit Provider Nurse Practitioner Family
DX: Z72.0 Tobacco use (principal)
CPT/HCPCS: 71046

== ENCOUNTER 2024-01-12 02:13 | Emergency (ER) | payer OTHER, SELFPAY ==
[2024-01-12 02:18] VITALS: BP 134/77; PULSE 88; RESP 18; TEMP 36.8; O2SAT 97
--- NOTE | 2024-01-12 06:31 | ED.GENADULT ---
HPI - General Adult General Chief complaint: Headache Stated complaint: headache Time Seen by Provider: 01/12/24 06:22 History of Present Illness HPI narrative: This is a 63-year-old female presenting with a headache. Patient says the headache started her neck and now is like an ice pick stabbing her in her head. This is her typical headache. She has these once a year and comes to the ED for IV medication. Patient has seen a several neurologist for this in the past with not gabapentin which usually provides relief but did not this time. Related Data Home Medications Medication Instructions Recorded Confirmed aspirin 81 mg chewable tablet 81 mg PO DAILY 03/11/19 12/02/23 cholecalciferol (vitamin D3) 50 50 mcg PO DAILY 02/27/22 12/02/23 mcg (2,000 unit) capsule (Vitamin D3) etanercept 50 mg/mL (1 mL) 50 mg subcut WEEKLY 06/03/23 12/02/23 subcutaneous syringe (Enbrel) Allergies Allergy/AdvReac Type Severity Reaction Status Date / Time Macrolide Antibiotics AdvReac Intermediate THRUSH Verified 12/02/23 10:27 clavulanic acid AdvReac Mild Nausea Verified 12/02/23 10:27 [From Augmentin] erythromycin base AdvReac Mild Nausea Verified 12/02/23 10:27 PMFSH Past Medical History Medical History Anxiety Arthritis HTN (hypertension) Hypercholesterolemia Occipital neuralgia Screening for malignant neoplasm of colon Tobacco abuse Surgical History Surgical History History of total knee arthroplasty Family History Family History Mother Family history of arthritis Diabetes mellitus Hypertension Father Family history of lung cancer Family history of cardiovascular disease Kidney disease Heart disease Sibling Lupus Cancer Other Cerebrovascular accident Family history of elevated blood lipids Family history of lupus erythematosus Social History Social History Smoking packs per day: 1 Smoking cigarettes per day: 20.0 Years smoked: 43 Smoking pack-years: 43.00 Smoking status: Current every day smoker Tobacco type: cigarettes Second hand tobacco smoke exposure: Yes Alcohol intake: former Substance use: current Substance use type: marijuana Other substance usage details: OCC Do You Feel Safe in your Home?: Yes Lack of Transportation: No Lack of Food: Never True Current Housing: I Have Housing Concerned About Future Housing: No Difficulty Paying Gas/Electric Bills: No Difficulty Paying for Meds: No Currently Unemployed: No Education: Trade/Vocational Certificate Difficulty w/ Childcare or Family Care: No Living arrangements: with family Occupation/Education: occupation Additional occupation/education comments: Hairstylist Gender identity (if verbalized by the patient): Female Spiritual care concerns: No Agree to blood products: Yes Exam Narrative: APPEARANCE: No apparent distress. Head: atraumatic. EYES: EOMI, NOSE: Atraumatic NECK: Trachea midline RESPIRATORY: No increased rate of breathing CARDIOVASCULAR: RRR, ABDOMINAL: Non-distended MUSCULOSKELETAl: No obvious deformities NEURO: Alert. Cranial nerves 2-12 grossly intact. Sensation light touch, motor function cerebellar function intact for 4 extremities. Gait exam was normal. SKIN:: Warm, dry. Normal color PSYCHIATRIC: Normal affect Course Vital Signs Vital signs: Vital Signs Temperature 98.2 F 01/12/24 02:18 Pulse Rate 88 01/12/24 02:18 Respiratory Rate 18 01/12/24 02:18 Blood Pressure 134/77 01/12/24 02:18 Pulse Oximetry 97 01/12/24 02:18 Oxygen Delivery Room Air 01/12/24 02:18 Temperature 98.2 F 01/12/24 02:18 Pulse Rate 88 01/12/24 02:18 Respiratory Rate 18 01/12/24 02:18 Blood Pressur
[2024-01-12] MEDS: diphenhydrAMINE HCl INJ 50 MG/ML VIAL 25 MG IV PUSH (06:52)
[2024-01-12] MEDS: SODIUM CHLORIDE 0.9% IV 1,000 ML 999 ML IV CONT (06:52)
[2024-01-12] MEDS: KETOROLAC 15 MG/ML VIAL (*BKC) IV PUSH (06:52)
[2024-01-12] MEDS: dexAMETHasone SOD PHOS INJ 10 MG/ML 1 ML VIAL IV PUSH (06:53)
[2024-01-12] MEDS: ACETAMINOPHEN 500 MG TABLET 1000 MG PO (06:53)
[2024-01-12] MEDS: PROCHLORPERAZINE EDISYLATE 10 MG/2 ML VIAL IM (06:57)
[2024-01-12 08:09] VITALS: BP 153/75; PULSE 72; RESP 18; O2SAT 100
== END 2024-01-12 08:11 | disposition home or self-care (01) ==
PROVIDERS: Emergency Provider Emergency Medicine; PCP Family Medicine
DX: R51.9 Headache, unspecified (principal); Z79.82 Long term (current) use of aspirin; I10 Essential (primary) hypertension; E78.00 Pure hypercholesterolemia, unspecified; F41.9 Anxiety disorder, unspecified; F17.210 Nicotine dependence, cigarettes, uncomplicated; Z96.659 Presence of unspecified artificial knee joint
CPT/HCPCS: 96361; 96372; 96374; 96375; 99284; A9270; J0780; J1100; J1200; J1885; J7030

== ENCOUNTER 2024-01-14 10:53 | Outpatient (CLI) | payer OTHER, SELFPAY ==
--- NOTE | ~2024-01-14 | XR_ITS ---
EXAMINATION: XR cervical spine min 6V DATE: 01/14/2024 11:12 INDICATION: Neck pain. TECHNIQUE: 8 views of cervical spine including flexion and extension views were obtained. COMPARISON: None. FINDINGS: There is 4 degrees levocurvature of cervicothoracic spine. There is mild kyphosis of cervic al spine. Vertebral body heights are normal. There is severely decreased disc height at C5-C6 and C6- C7. The spine is hypomobile with flexion and extension. There is multilevel uncovertebral joint osteo arthritis, severe bilaterally at C5-C6 and C6-C7. There is multilevel facet joint osteoarthritis, sev ere on the right at C3-C4 and C4-C5. On the right, there is mild neural foraminal stenosis at C4-C5, moderate neural foraminal stenosis at C5-C6, and mild neural foraminal stenosis at C6-C7. On the left , there is moderate neural foraminal stenosis at C4-C5, mild neural foraminal stenosis at C5-C6, and moderate neural foraminal stenosis at C6-C7. There is mild central canal stenosis at C5-C6 and C6-C7. IMPRESSION: 1. Severe cervical spondylosis. Reviewed, dictated and finalized at location A.
== END 2024-01-14 10:54 | disposition home or self-care (01) ==
PROVIDERS: PCP Family Medicine; Visit Provider Family Medicine
DX: M47.892 Other spondylosis, cervical region (principal)
CPT/HCPCS: 72052

== ENCOUNTER 2024-10-29 09:07 | Outpatient (CLI) | payer OTHER, SELFPAY ==
--- NOTE | ~2024-10-29 | MR_ITS ---
MRI of the cervical spine Clinical History: Spondylosis Technique: Axial T2-weighted and gradient images, and sagittal T1-weighted, T2-weighted, and STIR ángel ges were acquired. Findings: No fracture or subluxation seen. There is mild reversal normal cervical lordosis. No bone m arrow signal abnormality seen. At C2-C3, there is no disc bulge or herniation. No spinal canal stenosis, cord compression, or neural foraminal narrowing. At C3-C4, there is no significant disc bulge or herniation. There is mild facet arthropathy with prob able mild right neural foraminal narrowing. Left neural foramen preserved. No canal stenosis or cord compression. At C4-C5, there is mild disc osteophyte complex. No spinal canal stenosis, cord compression, or neura l foraminal narrowing. At C5-C6, there is advanced degenerative disc narrowing. There is disc osteophyte complex resulting i n moderate canal stenosis and moderate ventral cord compression. Neural foramina are preserved. At C6-C7, there is advanced degenerative disc narrowing. Disc osteophyte complex results in mild angel l stenosis without magda cord compression. Neural foramina are preserved. No abnormal signal seen in the spinal cord. Paravertebral soft tissues are unremarkable. Impression: Disc osteophyte complex at C5-C6 results in moderate canal stenosis and moderate cord compression. Additional mild degenerative changes in the cervical spine, as above. Reviewed, dictated and finalized at [facility]. Impression: Disc osteophyte complex at C5-C6 results in moderate canal stenosis and moderat e cord compression. Additional mild degenerative changes in the cervical spine, as above.
== END 2024-10-29 09:08 | disposition home or self-care (01) ==
LOC: MICIMG 09:08
PROVIDERS: PCP Family Medicine; Visit Provider Nurse Practitioner Family
DX: M50.122 Cervical disc disorder at C5-C6 level with radiculopathy (principal); M47.812 Spondylosis without myelopathy or radiculopathy, cervical region; G95.20 Unspecified cord compression; M48.02 Spinal stenosis, cervical region
CPT/HCPCS: 72141

== ENCOUNTER 2025-02-03 11:47 | Outpatient (CLI) | payer OTHER, SELFPAY ==
--- NOTE | ~2025-02-03 | XR_ITS ---
EXAMINATION: XR knee LT min 4V, 02/03/2025 12:05 CDT HISTORY: ANTERIOR LATERAL LT KNEE PAIN SWELLING x5 DAYS COMPARISON: No comparisons available. Findings: No acute fracture or malalignment. No significant degenerative changes. Soft tissues unremarkable. Impression: No acute fracture or malalignment. Reviewed, dictated and finalized at location A. Impression: No acute fracture or malalignment.
== END 2025-02-03 11:48 | disposition home or self-care (01) ==
LOC: MICIMG 11:48
PROVIDERS: PCP Family Medicine
DX: M25.562 Pain in left knee (principal)
CPT/HCPCS: 73564

== ENCOUNTER 2025-03-25 11:18 | Outpatient (CLI) | payer OTHER, SELFPAY ==
--- NOTE | ~2025-03-25 | MR_ITS ---
EXAMINATION: MR knee LT wo con DATE: 03/25/2025 12:40 INDICATION: Instability of knee TECHNIQUE: Magnetic resonance imaging (MRI) of the left knee was performed without intravenous contrast. Sequences included axial PD-weighted FS FSE, coronal PD-weighted FSE and PD-weighted FS FSE, sagittal PD-weighted FSE, and sagittal T2-weighted FS FSE. COMPARISON: None. FINDINGS: No fracture subluxation or dislocation present. Moderately severe tricompartmental osteoarthritic degenerative changes including diffuse cartilaginous erosion/chondral thinning, prominent spur formation, joint space narrowing, and early developing subchondral cystic changes in the the medial femoral condyle. Degenerative changes most advanced in the medial joint space. Mildly increased T2-weighted signal along the periphery of the medial femoral condyle. Moderate-sized joint effusion is present. The cruciate and collateral ligaments appear intact. Medial meniscal tear involving the posterior horn with horizontal tear extending through the superior aspect of the red zone, on images 10 and 11 and 12 of series 6. The anterior horn appears mildly displaced but intact. The lateral meniscus appears intact. Extra articular soft tissues including quadriceps and infrapatellar tendons appear intact. Mild edematous appearing changes present in the prepatellar soft tissues. IMPRESSION: 1. Horizontal tear involving the posterior horn the medial meniscus. Moderate size joint effusion. 2. Moderately advanced osteoarthritic tricompartmental degenerative changes especially involving the medial compartment. 3. Mild edematous bone marrow changes involving the medial femoral condyle likely associated with arthritic changes, however stress or trauma related contusion could have a similar appearance. Reviewed, dictated and finalized at location A. [facility] IMPRESSION: 1. Horizontal tear involving the posterior horn the medial meniscus. Moderate s ize joint effusion. 2. Moderately advanced osteoarthritic tricompartmental degenerative changes jovani ecially involving the medial compartment. 3. Mild edematous bone marrow changes involving the medial femoral condyle like ly associated with arthritic changes, however stress or trauma related contusio n could have a similar appearance.
== END 2025-03-25 11:19 | disposition home or self-care (01) ==
LOC: MICIMG 11:18
PROVIDERS: PCP Family Medicine
DX: M25.362 Other instability, left knee (principal); M25.462 Effusion, left knee; S83.242A Other tear of medial meniscus, current injury, left knee, initial encounter; X58.XXXA Exposure to other specified factors, initial encounter; M17.12 Unilateral primary osteoarthritis, left knee
CPT/HCPCS: 73721